=== PATIENT | female | born 1975 | race Caucasian/White ===

== ENCOUNTER 2021-04-18 13:02 | Inpatient (IN) ==
[2021-04-18 14:20] LABS: Calcium 8.6 mg/dL (8.6-10.3)
[2021-04-18 14:21] LABS: Bacteria,Urine Few per hpf (None-Few); Hyaline Casts,Urine Moderate per lpf (None Seen); Mucus,Urine Few per lpf (None-Few); RBC,Urine 0-3 per hpf (0-3); Renal Epithelial Cells,Urine Few per hpf (None-Few); Squamous Epithelial Cell,Urine Few per hpf (None-Few)
[2021-04-18 14:22] LABS: Bilirubin,Urine Negative (Negative); Blood,Urine Moderate (Negative); Clarity,Urine Clear (Clear); Color,Urine Light-Yellow (Yellow); Glucose,Urine (UA) >=1000 mg/dL (Normal); Ketones,Urine Negative (Negative); Leukocyte Esterase,Urine Negative (Negative); Nitrite,Urine Negative (Negative); PH,Urine 6.5 pH Units (5.0-8.0); Protein,Urine >=600 mg/dL (Neg-Trace); Specific Gravity,Urine 1.018 (1.010-1.025); Urobilinogen,Urine Normal (Normal)
[2021-04-18 14:35] LABS: Basophils % 1.2 %; Mean Platelet Volume 11.4 fL (9.4-12.4); Segmented Neutrophils % 72.5 %
[2021-04-18 14:38] LABS: Basophils # 0.1 K/mcL (0.0-0.2); Eosinophils # 0.6 K/mcL (0.0-0.6); Eosinophils % 6.2 %; Hematocrit 37.6 % (35.3-44.9); Immature Granulocytes % 0.5 % (0-4); Immature Platelets 4.5 % (1.1-6.1); Lymphocytes # 1.5 K/mcL (0.6-4.6); Lymphocytes % 14.6 %; Mean Corpuscular HGB Conc 31.9 g/dL (31.6-35.5); Mean Corpuscular Hemoglobin 27.7 pg (28.0-33.3); Mean Corpuscular Volume 86.8 fL (83.0-100.0); Monocytes # 0.5 K/mcL (0.0-1.3); Neutrophils # 7.4 K/mcL (1.6-8.9); Platelet Count 383 K/mcL (140-400); Red Blood Count 4.33 M/mcL (3.82-4.97); White Blood Count 10.2 K/mcL (4.3-11.1)
[2021-04-18 15:04] LABS: Phosphorous 5.1 mg/dL (2.7-4.5)
[2021-04-18] MEDS ORDERED: Naloxone 0.4 MG/ML INJ IVP PRN (16:18)
[2021-04-18] MEDS ORDERED: Melatonin 3 MG TABLET PO PRN (16:18)
[2021-04-18] MEDS ORDERED: Acetaminophen 325 MG TABLET PO PRN (16:18)
[2021-04-18] MEDS ORDERED: Ondansetron 4 MG/2 ML VIAL IVP PRN (16:18)
[2021-04-18 16:23] LABS: Prothrombin Time 11.6 Seconds (9.4-12.1)
[2021-04-18] MEDS ORDERED: *HR* Dextrose 50 % in Water (Vial) 50 ML VIAL IVP PRN (17:37)
[2021-04-18] MEDS ORDERED: Dextrose Gel 15 GM/37.5 ML TUBE PO PRN ×2 (17:37)
[2021-04-18] MEDS ORDERED: D5% in Water 1,000 ML IVC PRN (17:37)
[2021-04-18] MEDS ORDERED: Perflutren Lipid Microsphere 1.3 ML in 0.9 % Sodium Chloride 8.7 ML IVP PRN (17:40)
[2021-04-18] MEDS ORDERED: *HR* Heparin 5,000 UNIT/ML VIAL SQ SCH (18:00)
[2021-04-18 19:04] LABS: Estimated Average Glucose 200 mg/dl; Hemoglobin A1C 8.6 %
[2021-04-18] MEDS ORDERED: Insulin LISPRO 300 UNITS/3 ML VIAL SUBQ ONE (19:37)
[2021-04-18] MEDS: cloNIDine HCL 0.1 MG TABLET PO SCH (19:37)
[2021-04-18] MEDS ORDERED: Insulin DETEMIR 100 UNIT/ML X5UNITS SUBQ SCH (21:00)
[2021-04-18] MEDS ORDERED: Fluticasone Propionate Nasal 50 MCG/SPRAY BOTTLE NS PRN (22:18)
[2021-04-18] MEDS ORDERED: Famotidine 20 MG TABLET PO PRN ×2 (22:18→22:34)
[2021-04-18] MEDS ORDERED: Loratadine 10 MG TABLET PO PRN (22:18)
[2021-04-19 01:02] LABS: Basophils # 0.1 K/mcL (0.0-0.2); Basophils % 0.9 %; Eosinophils # 0.7 K/mcL (0.0-0.6); Eosinophils % 6.7 %; Hematocrit 32.9 % (35.3-44.9); Hemoglobin 10.6 g/dL (11.5-15.4); Immature Granulocytes % 0.4 % (0-4); Lymphocytes # 2.8 K/mcL (0.6-4.6); Lymphocytes % 27.3 %; Mean Corpuscular HGB Conc 32.2 g/dL (31.6-35.5); Mean Corpuscular Volume 86.8 fL (83.0-100.0); Mean Platelet Volume 10.6 fL (9.4-12.4); Monocytes % 9.7 %; Neutrophils # 5.6 K/mcL (1.6-8.9); Platelet Count 341 K/mcL (140-400); Red Blood Count 3.79 M/mcL (3.82-4.97); White Blood Count 10.1 K/mcL (4.3-11.1)
[2021-04-19 01:43] LABS: Phosphorous 4.4 mg/dL (2.7-4.5); Potassium 4.2 mEq/L (3.5-5.1)
[2021-04-19] MEDS: *HR* Heparin 5,000 UNIT/ML VIAL SQ SCH ×2 (05:47→18:52)
[2021-04-19] MEDS: Insulin LISPRO 300 UNITS/3 ML VIAL SUBQ SCH ×6 (08:13→16:49)
[2021-04-19] MEDS: Metoprolol 100 MG TABLET PO SCH ×2 (08:18→21:56)
[2021-04-19] MEDS: Insulin DETEMIR 100 UNIT/ML X5UNITS SUBQ SCH ×2 (08:19→22:22)
[2021-04-19] MEDS: cloNIDine HCL 0.1 MG TABLET PO SCH ×3 (08:19→21:57)
[2021-04-19] MEDS ORDERED: Famotidine 20 MG TABLET PO PRN (10:48)
[2021-04-19] MEDS ORDERED: *HR* Heparin 10,000 UNIT/10 ML VIAL IV PRN (10:56)
[2021-04-19] MEDS ORDERED: 0.9 % Sodium Chloride 250 ML IVC PRN (10:56)
[2021-04-19] MEDS ORDERED: 0.9 % Sodium Chloride 1,000 ML PRIME SCH (11:00)
[2021-04-19 12:11] LABS: Hepatitis B Surface Antibody < 3.10 mIU/mL
[2021-04-19 12:22] LABS: Hepatitis B Surface Antigen Nonreactive (Nonreactive)
[2021-04-19] MEDS ORDERED: 0.9 % Sodium Chloride 500 ML ONE (14:34)
[2021-04-19] MEDS ORDERED: Heparin 1,000 UNITS/500 mL 500 ML ONE (14:36)
[2021-04-19] MEDS ORDERED: Lidocaine/EPI 1:100k 1% 50 ML VIAL ONE (14:36)
[2021-04-19 14:38] LABS: Hepatitis B Core IgM Nonreactive (Nonreactive)
[2021-04-19] MEDS ORDERED: CeFAZolin 2,000MG/50ML DUPLEX 2,000 MG/50 ML BAG IVPB ONE ×2 (14:43→15:00)
[2021-04-19] MEDS ORDERED: *HR* Midazolam HCl 2 MG/2 ML VIAL IVP ONE (14:43)
[2021-04-19] MEDS ORDERED: *HR* FentaNYL (PF) 100 MCG/2 ML VIAL IVP ONE (14:43)
[2021-04-19] MEDS ORDERED: *HR* Heparin 5,000 UNIT/ML VIAL ONE (15:02)
[2021-04-19] MEDS ORDERED: Gabapentin 400 MG CAPSULE PO SCH (21:00)
[2021-04-19] MEDS: *HR* HYDROcodone/Acet 5/325 mg TABLET PO PRN (21:56)
[2021-04-19] MEDS: Metoclopramide 10 MG/2 ML VIAL IVP PRN (21:56)
[2021-04-19] MEDS: Cholecalciferol (D-3) 1,000 UNIT (25MCG) TABLET PO SCH (21:56)
[2021-04-20] MEDS: *HR* Heparin 5,000 UNIT/ML VIAL SQ SCH ×2 (05:53→17:59)
[2021-04-20] MEDS: *HR* HYDROcodone/Acet 5/325 mg TABLET PO PRN (06:35)
[2021-04-20] MEDS ORDERED: 0.9 % Sodium Chloride 250 ML IVC PRN (07:38)
[2021-04-20] MEDS ORDERED: *HR* Heparin 10,000 UNIT/10 ML VIAL IV PRN (07:38)
[2021-04-20 07:47] LABS: Hematocrit 32.7 % (35.3-44.9); Hemoglobin 10.9 g/dL (11.5-15.4); Mean Corpuscular HGB Conc 33.3 g/dL (31.6-35.5); Mean Corpuscular Hemoglobin 28.5 pg (28.0-33.3); Mean Corpuscular Volume 85.4 fL (83.0-100.0); Mean Platelet Volume 10.9 fL (9.4-12.4); Platelet Count 324 K/mcL (140-400); Red Blood Count 3.83 M/mcL (3.82-4.97); White Blood Count 8.3 K/mcL (4.3-11.1)
[2021-04-20 08:08] LABS: Calcium 8.3 mg/dL (8.6-10.3); Magnesium 2.1 mg/dL (1.6-2.6); Phosphorous 4.8 mg/dL (2.7-4.5); Potassium 3.9 mEq/L (3.5-5.1)
[2021-04-20] MEDS: Insulin LISPRO 300 UNITS/3 ML VIAL SUBQ SCH ×6 (08:24→19:04)
[2021-04-20] MEDS: Renal Vitamin 1 CAP CAPSULE PO SCH (08:25)
[2021-04-20] MEDS: cloNIDine HCL 0.1 MG TABLET PO SCH ×4 (08:33→17:59)
[2021-04-20] MEDS: Metoprolol 100 MG TABLET PO SCH ×3 (08:33→21:12)
[2021-04-20] MEDS: Insulin DETEMIR 100 UNIT/ML X5UNITS SUBQ SCH ×2 (10:09→21:11)
[2021-04-20] MEDS ORDERED: Gabapentin 300 MG CAPSULE PO SCH (21:00)
[2021-04-20] MEDS: Cholecalciferol (D-3) 1,000 UNIT (25MCG) TABLET PO SCH (21:12)
[2021-04-21 02:26] VITALS: PULSE 70
[2021-04-21] MEDS: *HR* Heparin 5,000 UNIT/ML VIAL SQ SCH (04:38)
[2021-04-21 05:22] LABS: Hematocrit 31.8 % (35.3-44.9); Hemoglobin 10.5 g/dL (11.5-15.4); Mean Corpuscular Hemoglobin 27.9 pg (28.0-33.3); Mean Corpuscular Volume 84.6 fL (83.0-100.0); Mean Platelet Volume 10.7 fL (9.4-12.4); Platelet Count 306 K/mcL (140-400); Red Blood Count 3.76 M/mcL (3.82-4.97); White Blood Count 7.8 K/mcL (4.3-11.1)
[2021-04-21 05:43] LABS: Calcium 8.3 mg/dL (8.6-10.3); Phosphorous 4.2 mg/dL (2.7-4.5)
[2021-04-21 06:06] LABS: Folate 7.4 ng/mL (3.0-16.0)
[2021-04-21 06:40] VITALS: O2SAT 97
[2021-04-21] MEDS ORDERED: *HR* Heparin 10,000 UNIT/10 ML VIAL IV PRN (07:27)
[2021-04-21] MEDS ORDERED: 0.9 % Sodium Chloride 250 ML IVC PRN (07:27)
[2021-04-21] MEDS: Metoprolol 100 MG TABLET PO SCH (07:37)
[2021-04-21] MEDS: cloNIDine HCL 0.1 MG TABLET PO SCH ×2 (07:37→12:01)
[2021-04-21] MEDS: Metoclopramide 10 MG/2 ML VIAL IVP PRN (07:58)
[2021-04-21] MEDS: Renal Vitamin 1 CAP CAPSULE PO SCH (07:58)
[2021-04-21] MEDS: Insulin DETEMIR 100 UNIT/ML X5UNITS SUBQ SCH (07:58)
[2021-04-21] MEDS: Insulin LISPRO 300 UNITS/3 ML VIAL SUBQ SCH ×4 (07:59→12:01)
[2021-04-21 11:48] VITALS: BP 168/64; TEMP 98
== END 2021-04-21 13:18 | disposition home or self-care (01) | DRG 469 ==
LOC: EMEROOARM 13:02 → 2ANU 13:02
PROVIDERS: ADMIT Internal Medicine; ATTEND Internal Medicine
PROC: IRPERMA (2021-04-19 12:00)

== ENCOUNTER 2022-03-10 19:03 | Inpatient (IN) ==
[2022-03-10] MEDS ORDERED: *HR* FentaNYL (PF) 100 MCG/2 ML VIAL IVP ONE (20:14)
[2022-03-10] MEDS ORDERED: Metoclopramide 10 MG/2 ML VIAL IVP ONE (20:33)
[2022-03-10] MEDS ORDERED: cloNIDine HCL 0.1 MG TABLET PO ONE (20:53)
[2022-03-10] MEDS ORDERED: Metoprolol 100 MG TABLET PO STA (20:53)
[2022-03-10] MEDS ORDERED: Naloxone 0.4 MG/ML INJ IVP PRN (20:55)
[2022-03-10 22:10] LABS: Basophils # 0.1 K/mcL (0.0-0.2); Basophils % 0.9 %; Eosinophils # 0.9 K/mcL (0.0-0.6); Eosinophils % 7.5 %; Hematocrit 32.5 % (35.3-44.9); Hemoglobin 10.7 g/dL (11.5-15.4); Immature Granulocytes % 0.4 % (0-4); Lymphocytes # 1.5 K/mcL (0.6-4.6); Lymphocytes % 12.4 %; Mean Corpuscular HGB Conc 32.9 g/dL (31.6-35.5); Mean Corpuscular Hemoglobin 28.5 pg (28.0-33.3); Mean Corpuscular Volume 86.4 fL (83.0-100.0); Mean Platelet Volume 10.7 fL (9.4-12.4); Monocytes # 0.7 K/mcL (0.0-1.3); Monocytes % 5.7 %; Neutrophils # 8.5 K/mcL (1.6-8.9); Platelet Count 389 K/mcL (140-400); Red Blood Count 3.76 M/mcL (3.82-4.97); Red Cell Distribution Width 13.3 % (11.5-14.5); Segmented Neutrophils % 73.1 %; White Blood Count 11.7 K/mcL (4.3-11.1)
[2022-03-10 22:29] LABS: Calcium 8.1 mg/dL (8.6-10.3); Potassium 3.1 mEq/L (3.5-5.1); Prothrombin Time 11.4 Seconds (9.4-12.1)
[2022-03-10 22:32] LABS: Activated Partial Thrombo Time 30.7 Seconds (26.0-36.0)
[2022-03-10] MEDS ORDERED: *HR* Dextrose 50 % in Water (Syg) 50 ML SYRINGE IVP PRN (23:12)
[2022-03-10] MEDS ORDERED: D5% in Water 1,000 ML IVC PRN (23:12)
[2022-03-10] MEDS ORDERED: Dextrose Gel 15 GM/37.5 ML TUBE PO PRN ×2 (23:12)
[2022-03-11] MEDS: Insulin LISPRO 300 UNITS/3 ML VIAL SUBQ SCH ×5 (00:07→20:07)
[2022-03-11 03:37] LABS: Prothrombin Time 11.4 Seconds (9.4-12.1)
[2022-03-11 03:39] LABS: Activated Partial Thrombo Time 26.1 Seconds (26.0-36.0)
[2022-03-11 03:47] LABS: Calcium 8.1 mg/dL (8.6-10.3); Magnesium 1.8 mg/dL (1.6-2.6); Phosphorous 6.2 mg/dL (2.7-4.5); Potassium 2.9 mEq/L (3.5-5.1)
[2022-03-11 03:50] LABS: Chol/HDL Ratio 3.1 (0-4.9)
[2022-03-11] MEDS ORDERED: Metoclopramide 10 MG/2 ML VIAL IVP ONE ×2 (05:14→11:42)
[2022-03-11] MEDS ORDERED: 0.9 % Sodium Chloride 1,000 ML IVC SCH (06:00)
[2022-03-11] MEDS: Ondansetron 4 MG/2 ML VIAL IVP PRN (10:10)
[2022-03-11] MEDS: *HR* Heparin 5,000 UNIT/ML VIAL SQ SCH ×2 (16:57→22:38)
[2022-03-12] MEDS: *HR* Heparin 5,000 UNIT/ML VIAL SQ SCH ×3 (04:00→20:51)
[2022-03-12] MEDS: Ondansetron 4 MG/2 ML VIAL IVP PRN ×2 (04:09→19:49)
[2022-03-12 07:41] LABS: Basophils # 0.1 K/mcL (0.0-0.2); Basophils % 0.5 %; Eosinophils # 0.3 K/mcL (0.0-0.6); Eosinophils % 2.6 %; Hematocrit 30.5 % (35.3-44.9); Hemoglobin 9.7 g/dL (11.5-15.4); Immature Granulocytes % 0.5 % (0-4); Lymphocytes # 1.9 K/mcL (0.6-4.6); Lymphocytes % 17.1 %; Mean Corpuscular HGB Conc 31.8 g/dL (31.6-35.5); Mean Corpuscular Hemoglobin 28.7 pg (28.0-33.3); Mean Corpuscular Volume 90.2 fL (83.0-100.0); Mean Platelet Volume 10.9 fL (9.4-12.4); Monocytes # 1.2 K/mcL (0.0-1.3); Monocytes % 11.1 %; Neutrophils # 7.4 K/mcL (1.6-8.9); Platelet Count 376 K/mcL (140-400); Red Blood Count 3.38 M/mcL (3.82-4.97); Red Cell Distribution Width 13.9 % (11.5-14.5); Segmented Neutrophils % 68.2 %; White Blood Count 10.9 K/mcL (4.3-11.1)
[2022-03-12] MEDS: Insulin LISPRO 300 UNITS/3 ML VIAL SUBQ SCH ×4 (07:51→21:09)
[2022-03-12 08:01] LABS: Calcium 8.2 mg/dL (8.6-10.3); Potassium 3.1 mEq/L (3.5-5.1)
[2022-03-12] MEDS ORDERED: Furosemide 40 MG TABLET PO PRN (10:50)
[2022-03-12] MEDS ORDERED: Insulin DETEMIR 100 UNIT/ML X5UNITS SUBQ SCH (11:00)
[2022-03-12] MEDS: Budesonide/Formoterol 160/4.5 1 PUFF INH IH SCH ×2 (11:26→20:00)
[2022-03-12] MEDS: Calcium Acetate 667 MG CAPSULE PO SCH ×2 (11:58→17:29)
[2022-03-12] MEDS: Gabapentin 400 MG CAPSULE PO SCH (20:51)
[2022-03-12] MEDS: cloNIDine HCL 0.1 MG TABLET PO SCH (20:51)
[2022-03-12] MEDS: Insulin DETEMIR 100 UNIT/ML X5UNITS SUBQ SCH (21:13)
[2022-03-13 02:38] LABS: Basophils # 0.1 K/mcL (0.0-0.2); Basophils % 0.6 %; Eosinophils # 0.6 K/mcL (0.0-0.6); Eosinophils % 4.7 %; Hematocrit 31.8 % (35.3-44.9); Hemoglobin 10.1 g/dL (11.5-15.4); Immature Granulocytes % 0.5 % (0-4); Lymphocytes # 1.5 K/mcL (0.6-4.6); Lymphocytes % 11.6 %; Mean Corpuscular HGB Conc 31.8 g/dL (31.6-35.5); Mean Corpuscular Hemoglobin 28.1 pg (28.0-33.3); Mean Corpuscular Volume 88.6 fL (83.0-100.0); Mean Platelet Volume 10.7 fL (9.4-12.4); Monocytes # 1.2 K/mcL (0.0-1.3); Monocytes % 8.9 %; Neutrophils # 9.5 K/mcL (1.6-8.9); Platelet Count 390 K/mcL (140-400); Red Blood Count 3.59 M/mcL (3.82-4.97); Red Cell Distribution Width 13.5 % (11.5-14.5); Segmented Neutrophils % 73.7 %; White Blood Count 12.9 K/mcL (4.3-11.1)
[2022-03-13 02:48] LABS: Calcium 8.6 mg/dL (8.6-10.3); Potassium 3.5 mEq/L (3.5-5.1)
[2022-03-13] MEDS: *HR* Heparin 5,000 UNIT/ML VIAL SQ SCH ×3 (05:15→20:45)
[2022-03-13] MEDS: Insulin LISPRO 300 UNITS/3 ML VIAL SUBQ SCH ×5 (07:09→20:46)
[2022-03-13] MEDS: Budesonide/Formoterol 160/4.5 1 PUFF INH IH SCH ×2 (07:39→19:49)
[2022-03-13] MEDS: cloNIDine HCL 0.1 MG TABLET PO SCH ×2 (08:34→20:46)
[2022-03-13] MEDS: Calcium Acetate 667 MG CAPSULE PO SCH (08:34)
[2022-03-13] MEDS ORDERED: Metoclopramide 10 MG/2 ML VIAL IVP PRN ×2 (08:41→09:02)
[2022-03-13] MEDS: Insulin DETEMIR 100 UNIT/ML X5UNITS SUBQ SCH ×2 (09:49→20:45)
[2022-03-13] MEDS: Metoclopramide 10 MG/2 ML VIAL IVP PRN (17:31)
[2022-03-13] MEDS ORDERED: Perit. Dialysis with Dex 4.25% 6,000 ML PERITONEAL SCH (19:00)
[2022-03-13] MEDS ORDERED: Perit. Dialysis with Dex 2.5 % 6,000 ML PERITONEAL SCH (19:00)
[2022-03-13 19:39] LABS: Hepatitis B Surface Antibody > 850.00 mIU/mL
[2022-03-13 19:50] LABS: Hepatitis B Surface Antigen Nonreactive (Nonreactive)
[2022-03-13] MEDS: Gabapentin 400 MG CAPSULE PO SCH (20:46)
[2022-03-14] MEDS: Calcium Acetate 667 MG CAPSULE PO SCH (01:07)
[2022-03-14] MEDS: Ondansetron 4 MG/2 ML VIAL IVP PRN ×2 (04:44→16:40)
[2022-03-14] MEDS: *HR* Heparin 5,000 UNIT/ML VIAL SQ SCH ×3 (04:45→20:07)
[2022-03-14 05:42] LABS: Basophils # 0.1 K/mcL (0.0-0.2); Basophils % 0.5 %; Eosinophils # 0.9 K/mcL (0.0-0.6); Eosinophils % 5.2 %; Hematocrit 32.9 % (35.3-44.9); Immature Granulocytes % 0.7 % (0-4); Lymphocytes # 1.4 K/mcL (0.6-4.6); Lymphocytes % 8.5 %; Mean Corpuscular HGB Conc 30.4 g/dL (31.6-35.5); Mean Corpuscular Volume 92.2 fL (83.0-100.0); Mean Platelet Volume 10.7 fL (9.4-12.4); Monocytes # 1.5 K/mcL (0.0-1.3); Monocytes % 9.1 %; Neutrophils # 12.6 K/mcL (1.6-8.9); Platelet Count 431 K/mcL (140-400); Red Blood Count 3.57 M/mcL (3.82-4.97); Red Cell Distribution Width 13.2 % (11.5-14.5); White Blood Count 16.5 K/mcL (4.3-11.1)
[2022-03-14 07:02] LABS: Calcium 8.7 mg/dL (8.6-10.3); Potassium 4.2 mEq/L (3.5-5.1)
[2022-03-14 07:23] LABS: Estimated Average Glucose 329 mg/dl; Hemoglobin A1C 13.1 %
[2022-03-14] MEDS ORDERED: *HR* FentaNYL (PF) 100 MCG/2 ML VIAL ONE ×2 (07:57→12:08)
[2022-03-14] MEDS ORDERED: *HR* Midazolam HCl 2 MG/2 ML VIAL ONE (07:58)
[2022-03-14] MEDS ORDERED: *HR* Propofol 200 MG/20 ML VIAL IVP ONE ×2 (07:59)
[2022-03-14] MEDS ORDERED: *HR* Succinylcholine 200 MG/10 ML VIAL IVP ONE (08:01)
[2022-03-14] MEDS ORDERED: Lidocaine -MPF 2% 5 ML VIAL ONE ×2 (08:01→13:56)
[2022-03-14] MEDS ORDERED: *HR* Rocuronium Bromide 50 MG/5 ML VIAL ONE (08:01)
[2022-03-14] MEDS ORDERED: Insulin DETEMIR 100 UNIT/ML X5UNITS SUBQ ONE (08:01)
[2022-03-14] MEDS ORDERED: Ondansetron 4 MG/2 ML VIAL ONE (08:01)
[2022-03-14] MEDS ORDERED: Insulin LISPRO 300 UNITS/3 ML VIAL SUBQ ONE (08:01)
[2022-03-14] MEDS: Insulin DETEMIR 100 UNIT/ML X5UNITS SUBQ SCH ×2 (08:02→20:06)
[2022-03-14] MEDS: cloNIDine HCL 0.1 MG TABLET PO SCH ×2 (08:08→20:06)
[2022-03-14] MEDS ORDERED: Lidocaine -MPF 4% 5 ML AMPUL ONE (08:19)
[2022-03-14] MEDS: Insulin LISPRO 300 UNITS/3 ML VIAL SUBQ SCH ×4 (08:33→20:06)
[2022-03-14] MEDS ORDERED: TOTAL JOINT MIXTURE (100ML) INTRAART ONE (09:00)
[2022-03-14] MEDS ORDERED: Heparin 1,000 UNITS/500 mL 500 ML ONE (09:08)
[2022-03-14] MEDS: 0.9 % Sodium Chloride 1,000 ML IVC SCH ×2 (09:14→16:31)
[2022-03-14] MEDS: Budesonide/Formoterol 160/4.5 1 PUFF INH IH SCH ×2 (09:18→19:49)
[2022-03-14] MEDS ORDERED: EPHEDrine 50 MG/ML VIAL ONE (09:19)
[2022-03-14] MEDS ORDERED: *HR* Vasopressin 20 UNIT/ML VIAL ONE (09:22)
[2022-03-14] MEDS ORDERED: *HR* Etomidate 40 MG/20 ML VIAL IVP ONE (09:41)
[2022-03-14] MEDS ORDERED: Povidone-Iodine 45 ML, Sodium Chloride IRRigation 1,000 ML IR ONE (09:45)
[2022-03-14] MEDS ORDERED: CeFAZolin Syr 3,000MG/30 ML 3,000 MG/30 ML SYRINGE IVPB ONE (10:00)
[2022-03-14] MEDS ORDERED: Acetaminophen IV 1,000 MG/100 ML BAG IVPB ONE (10:46)
[2022-03-14] MEDS ORDERED: Gentamicin 430 MG in 0.9 % Sodium Chloride 100 ML IVPB ONE (11:00)
[2022-03-14 11:07] LABS: ABG Base Excess -3 mEq/L (-2 to 3); ABG Chloride 95 mEq/L (98-107); ABG Glucose 403 mg/dL (60-95); ABG HCO3 21 mEq/L (21-27); ABG Ionized Calcium 0.97 mmol/L (1.15-1.35); ABG Oxygen Saturation 100 % (95-98); ABG PCO2 32 mmHg (35-45); ABG PH 7.43 pH Units (7.32-7.45); ABG PO2 158 mmHg (85-104); ABG TCO2 22 mEq/L (20-26)
[2022-03-14] MEDS ORDERED: Insulin Regular, Human 100 UNIT/ML ONE (11:15)
[2022-03-14] MEDS ORDERED: ceFAZolin 3,000 MG in 0.9 % Sodium Chloride 100 ML IVPB SCH (16:00)
[2022-03-14] MEDS ORDERED: ceFAZolin 1,000 MG in 0.9 % Sodium Chloride 10 ML IVP SCH (17:00)
[2022-03-14] MEDS ORDERED: Perit. Dialysis with Dex 1.5 % 12,000 ML PERITONEAL ONE (19:00)
[2022-03-14] MEDS: Gabapentin 400 MG CAPSULE PO SCH (20:07)
[2022-03-15] MEDS: *HR* Heparin 5,000 UNIT/ML VIAL SQ SCH ×3 (05:38→21:21)
[2022-03-15 06:01] LABS: Basophils % 0.2 %; Eosinophils % 0.1 %; Hematocrit 27.6 % (35.3-44.9); Hemoglobin 8.6 g/dL (11.5-15.4); Lymphocytes % 5.7 %; Mean Corpuscular HGB Conc 31.2 g/dL (31.6-35.5); Mean Corpuscular Hemoglobin 28.5 pg (28.0-33.3); Mean Corpuscular Volume 91.4 fL (83.0-100.0); Mean Platelet Volume 10.8 fL (9.4-12.4); Monocytes # 1.6 K/mcL (0.0-1.3); Monocytes % 9.3 %; Neutrophils # 14.1 K/mcL (1.6-8.9); Platelet Count 418 K/mcL (140-400); Red Blood Count 3.02 M/mcL (3.82-4.97); Red Cell Distribution Width 13.5 % (11.5-14.5); Segmented Neutrophils % 83.7 %; White Blood Count 16.8 K/mcL (4.3-11.1)
[2022-03-15 06:19] LABS: Calcium 8.7 mg/dL (8.6-10.3)
[2022-03-15] MEDS: Budesonide/Formoterol 160/4.5 1 PUFF INH IH SCH ×2 (07:11→20:35)
[2022-03-15] MEDS: 0.9 % Sodium Chloride 1,000 ML IVC SCH ×2 (08:20)
[2022-03-15] MEDS: cloNIDine HCL 0.1 MG TABLET PO SCH ×2 (08:23→21:20)
[2022-03-15] MEDS: Insulin LISPRO 300 UNITS/3 ML VIAL SUBQ SCH ×6 (08:24→16:35)
[2022-03-15] MEDS: Insulin DETEMIR 100 UNIT/ML X5UNITS SUBQ SCH ×2 (08:24→21:20)
[2022-03-15] MEDS ORDERED: Heparin 1,000 UNITS/500 mL 500 ML ONE (08:42)
[2022-03-15] MEDS ORDERED: Lidocaine/EPI 1:100k 1% 50 ML VIAL ONE (08:42)
[2022-03-15] MEDS ORDERED: *HR* Midazolam HCl 2 MG/2 ML VIAL ONE (08:45)
[2022-03-15] MEDS ORDERED: *HR* FentaNYL (PF) 100 MCG/2 ML VIAL ONE (08:45)
[2022-03-15] MEDS ORDERED: 0.9 % Sodium Chloride 500 ML ONE (08:45)
[2022-03-15] MEDS ORDERED: *HR* Midazolam HCl 2 MG/2 ML VIAL IVP ONE (08:49)
[2022-03-15] MEDS ORDERED: *HR* FentaNYL (PF) 100 MCG/2 ML VIAL IVP ONE (08:49)
[2022-03-15] MEDS ORDERED: *HR* Heparin 10,000 UNIT/10 ML VIAL IV PRN (08:58)
[2022-03-15] MEDS ORDERED: 0.9 % Sodium Chloride 250 ML IVC PRN (08:58)
[2022-03-15] MEDS ORDERED: 0.9 % Sodium Chloride 2,000 ML PRIME SCH (09:00)
[2022-03-15] MEDS ORDERED: *HR* Heparin 5,000 UNIT/ML VIAL ONE (09:18)
[2022-03-15] MEDS: cefTRIAXone 1,000 MG in 0.9 % Sodium Chloride 10 ML IVP SCH (16:35)
[2022-03-15] MEDS: Gabapentin 400 MG CAPSULE PO SCH (21:20)
[2022-03-15] MEDS: Metoclopramide 10 MG/2 ML VIAL IVP PRN (21:32)
[2022-03-16] MEDS: Insulin LISPRO 300 UNITS/3 ML VIAL SUBQ SCH ×6 (06:10→21:05)
[2022-03-16] MEDS: *HR* Heparin 5,000 UNIT/ML VIAL SQ SCH ×3 (06:10→21:51)
[2022-03-16] MEDS: Budesonide/Formoterol 160/4.5 1 PUFF INH IH SCH ×2 (08:00→20:11)
[2022-03-16 09:18] LABS: Basophils # 0.1 K/mcL (0.0-0.2); Basophils % 0.5 %; Eosinophils % 1.6 %; Hemoglobin 8.9 g/dL (11.5-15.4); Immature Granulocytes % 1.8 % (0-4); Lymphocytes % 12.7 %; Mean Corpuscular HGB Conc 31.8 g/dL (31.6-35.5); Mean Corpuscular Hemoglobin 28.1 pg (28.0-33.3); Mean Corpuscular Volume 88.3 fL (83.0-100.0); Mean Platelet Volume 10.9 fL (9.4-12.4); Monocytes # 1.8 K/mcL (0.0-1.3); Monocytes % 11.6 %; Neutrophils # 11.1 K/mcL (1.6-8.9); Nucleated Red Blood Cells 0.2 /100 WBC (0); Platelet Count 399 K/mcL (140-400); Red Blood Count 3.17 M/mcL (3.82-4.97); Red Cell Distribution Width 13.5 % (11.5-14.5); Segmented Neutrophils % 71.8 %; White Blood Count 15.4 K/mcL (4.3-11.1)
[2022-03-16 09:19] LABS: Eosinophils # 0.3 K/mcL (0.0-0.6)
[2022-03-16] MEDS: Metoclopramide 10 MG/2 ML VIAL IVP PRN (09:26)
[2022-03-16] MEDS: cloNIDine HCL 0.1 MG TABLET PO SCH ×2 (09:27→21:53)
[2022-03-16] MEDS: Insulin DETEMIR 100 UNIT/ML X5UNITS SUBQ SCH ×2 (09:28→21:06)
[2022-03-16 09:35] LABS: Calcium 7.5 mg/dL (8.6-10.3); Potassium 5.1 mEq/L (3.5-5.1)
[2022-03-16] MEDS: cefTRIAXone 1,000 MG in 0.9 % Sodium Chloride 10 ML IVP SCH (16:05)
[2022-03-16] MEDS: Ondansetron 4 MG/2 ML VIAL IVP PRN (20:38)
[2022-03-16] MEDS: Gabapentin 400 MG CAPSULE PO SCH (21:53)
[2022-03-17 06:27] LABS: Basophils # 0.1 K/mcL (0.0-0.2); Basophils % 0.4 %; Eosinophils # 0.5 K/mcL (0.0-0.6); Eosinophils % 4.1 %; Hematocrit 24.1 % (35.3-44.9); Hemoglobin 7.4 g/dL (11.5-15.4); Immature Granulocytes % 1.3 % (0-4); Lymphocytes % 17.7 %; Mean Corpuscular HGB Conc 30.7 g/dL (31.6-35.5); Mean Corpuscular Hemoglobin 28.2 pg (28.0-33.3); Mean Platelet Volume 10.4 fL (9.4-12.4); Monocytes # 1.4 K/mcL (0.0-1.3); Monocytes % 11.7 %; Neutrophils # 7.5 K/mcL (1.6-8.9); Nucleated Red Blood Cells 0.4 /100 WBC (0); Platelet Count 358 K/mcL (140-400); Red Blood Count 2.62 M/mcL (3.82-4.97); Red Cell Distribution Width 13.5 % (11.5-14.5); Segmented Neutrophils % 64.8 %; White Blood Count 11.5 K/mcL (4.3-11.1)
[2022-03-17 06:42] LABS: Calcium 8.3 mg/dL (8.6-10.3); Potassium 4.6 mEq/L (3.5-5.1)
[2022-03-17] MEDS ORDERED: 0.9 % Sodium Chloride 250 ML IVC PRN (07:34)
[2022-03-17] MEDS: Budesonide/Formoterol 160/4.5 1 PUFF INH IH SCH ×2 (07:43→19:44)
[2022-03-17] MEDS: Insulin LISPRO 300 UNITS/3 ML VIAL SUBQ SCH ×4 (08:41→21:38)
[2022-03-17] MEDS: *HR* Heparin 5,000 UNIT/ML VIAL SQ SCH ×3 (08:41→19:51)
[2022-03-17] MEDS: Insulin DETEMIR 100 UNIT/ML X5UNITS SUBQ SCH ×2 (08:41→21:38)
[2022-03-17] MEDS: cloNIDine HCL 0.1 MG TABLET PO SCH ×2 (08:42→19:46)
[2022-03-17] MEDS: Ondansetron 4 MG/2 ML VIAL IVP PRN ×2 (08:46→16:15)
[2022-03-17] MEDS: Metoclopramide 10 MG/2 ML VIAL IVP PRN ×2 (08:46→22:24)
[2022-03-17] MEDS ORDERED: *HR* Heparin 10,000 UNIT/10 ML VIAL IV PRN (11:16)
[2022-03-17] MEDS: cefTRIAXone 1,000 MG in 0.9 % Sodium Chloride 10 ML IVP SCH ×2 (16:15→22:31)
[2022-03-17 18:43] LABS: Amorphous Sediment,Urine Few per hpf (None-Few); Bilirubin,Urine Negative (Negative); Blood,Urine Large (Negative); Budding Yeast,Urine Many per hpf (None Seen); Clarity,Urine Ex.Turbid (Clear); Color,Urine Yellow (Yellow); Glucose,Urine (UA) Normal (Normal); Ketones,Urine Negative (Negative); Leukocyte Esterase,Urine Large (Negative); Mucus,Urine Few per lpf (None-Few); Nitrite,Urine Negative (Negative); Protein,Urine >=600 mg/dL (Neg-Trace); RBC,Urine 30-50 per hpf (0-3); Squamous Epithelial Cell,Urine Moderate per hpf (None-Few); Transitional Epi Cells,Urine Few per hpf (None-Few); Urobilinogen,Urine Normal (Normal); WBC,Urine TNTC per hpf (0-3)
[2022-03-17] MEDS: Gabapentin 400 MG CAPSULE PO SCH (19:46)
[2022-03-18] MEDS: Ondansetron 4 MG/2 ML VIAL IVP PRN (02:58)
[2022-03-18 03:26] LABS: Basophils # 0.1 K/mcL (0.0-0.2); Basophils % 0.8 %; Eosinophils # 0.7 K/mcL (0.0-0.6); Eosinophils % 5.3 %; Hematocrit 26.2 % (35.3-44.9); Hemoglobin 7.8 g/dL (11.5-15.4); Immature Granulocytes % 2.1 % (0-4); Lymphocytes # 1.6 K/mcL (0.6-4.6); Lymphocytes % 12.1 %; Mean Corpuscular HGB Conc 29.8 g/dL (31.6-35.5); Mean Corpuscular Hemoglobin 28.1 pg (28.0-33.3); Mean Corpuscular Volume 94.2 fL (83.0-100.0); Mean Platelet Volume 10.1 fL (9.4-12.4); Monocytes # 1.4 K/mcL (0.0-1.3); Nucleated Red Blood Cells 0.4 /100 WBC (0); Platelet Count 340 K/mcL (140-400); Red Blood Count 2.78 M/mcL (3.82-4.97); Red Cell Distribution Width 13.2 % (11.5-14.5); Segmented Neutrophils % 68.7 %; White Blood Count 13.1 K/mcL (4.3-11.1)
[2022-03-18 03:35] LABS: Calcium 8.3 mg/dL (8.6-10.3); Magnesium 2.1 mg/dL (1.6-2.6); Phosphorous 5.5 mg/dL (2.7-4.5); Potassium 4.6 mEq/L (3.5-5.1)
[2022-03-18] MEDS: *HR* Heparin 5,000 UNIT/ML VIAL SQ SCH ×3 (05:11→20:22)
[2022-03-18] MEDS: Budesonide/Formoterol 160/4.5 1 PUFF INH IH SCH ×2 (07:39→20:22)
[2022-03-18] MEDS: cloNIDine HCL 0.1 MG TABLET PO SCH ×2 (07:49→20:21)
[2022-03-18] MEDS: Insulin LISPRO 300 UNITS/3 ML VIAL SUBQ SCH ×4 (07:49→20:25)
[2022-03-18] MEDS: Insulin DETEMIR 100 UNIT/ML X5UNITS SUBQ SCH ×2 (07:50→20:26)
[2022-03-18] MEDS: Ergocalciferol (VIT D2) 50,000 UNIT (1.25MG) CAP PO SCH (07:55)
[2022-03-18] MEDS: cefTRIAXone 1,000 MG in 0.9 % Sodium Chloride 10 ML IVP SCH (16:46)
[2022-03-18] MEDS: Gabapentin 400 MG CAPSULE PO SCH (20:21)
[2022-03-18] MEDS: Metoclopramide 10 MG/2 ML VIAL IVP PRN (20:32)
[2022-03-19 03:10] LABS: Basophils # 0.1 K/mcL (0.0-0.2); Basophils % 0.8 %; Eosinophils # 0.8 K/mcL (0.0-0.6); Eosinophils % 6.2 %; Hematocrit 24.7 % (35.3-44.9); Hemoglobin 7.3 g/dL (11.5-15.4); Immature Granulocytes % 2.4 % (0-4); Lymphocytes # 1.8 K/mcL (0.6-4.6); Lymphocytes % 14.7 %; Mean Corpuscular HGB Conc 29.6 g/dL (31.6-35.5); Mean Corpuscular Hemoglobin 27.8 pg (28.0-33.3); Mean Corpuscular Volume 93.9 fL (83.0-100.0); Mean Platelet Volume 10.4 fL (9.4-12.4); Monocytes # 1.2 K/mcL (0.0-1.3); Monocytes % 9.8 %; Neutrophils # 8.1 K/mcL (1.6-8.9); Nucleated Red Blood Cells 0.3 /100 WBC (0); Platelet Count 363 K/mcL (140-400); Red Blood Count 2.63 M/mcL (3.82-4.97); Red Cell Distribution Width 13.1 % (11.5-14.5); Segmented Neutrophils % 66.1 %; White Blood Count 12.2 K/mcL (4.3-11.1)
[2022-03-19] MEDS: Ondansetron 4 MG/2 ML VIAL IVP PRN (03:23)
[2022-03-19 03:29] LABS: Calcium 8.6 mg/dL (8.6-10.3); Magnesium 2.4 mg/dL (1.6-2.6); Phosphorous 7.7 mg/dL (2.7-4.5); Potassium 5.4 mEq/L (3.5-5.1)
[2022-03-19] MEDS: *HR* Heparin 5,000 UNIT/ML VIAL SQ SCH ×3 (04:59→20:37)
[2022-03-19] MEDS: Budesonide/Formoterol 160/4.5 1 PUFF INH IH SCH ×2 (07:30→19:48)
[2022-03-19] MEDS: Insulin LISPRO 300 UNITS/3 ML VIAL SUBQ SCH ×4 (08:18→20:36)
[2022-03-19] MEDS: cloNIDine HCL 0.1 MG TABLET PO SCH ×2 (08:23→20:36)
[2022-03-19] MEDS: cefTRIAXone 1,000 MG in 0.9 % Sodium Chloride 10 ML IVP SCH (17:36)
[2022-03-19] MEDS: Gabapentin 400 MG CAPSULE PO SCH (20:36)
[2022-03-19] MEDS: Insulin DETEMIR 100 UNIT/ML X5UNITS SUBQ SCH (20:37)
[2022-03-20 04:09] LABS: Basophils # 0.1 K/mcL (0.0-0.2); Basophils % 0.8 %; Eosinophils # 0.8 K/mcL (0.0-0.6); Eosinophils % 7.1 %; Hematocrit 24.9 % (35.3-44.9); Hemoglobin 7.5 g/dL (11.5-15.4); Lymphocytes # 1.9 K/mcL (0.6-4.6); Lymphocytes % 16.1 %; Mean Corpuscular HGB Conc 30.1 g/dL (31.6-35.5); Mean Corpuscular Hemoglobin 28.3 pg (28.0-33.3); Mean Platelet Volume 10.2 fL (9.4-12.4); Monocytes # 1.2 K/mcL (0.0-1.3); Monocytes % 9.8 %; Neutrophils # 7.4 K/mcL (1.6-8.9); Nucleated Red Blood Cells 0.2 /100 WBC (0); Platelet Count 348 K/mcL (140-400); Red Blood Count 2.65 M/mcL (3.82-4.97); Segmented Neutrophils % 62.2 %; White Blood Count 11.9 K/mcL (4.3-11.1)
[2022-03-20 04:25] LABS: Calcium 8.7 mg/dL (8.6-10.3); Potassium 5.8 mEq/L (3.5-5.1)
[2022-03-20] MEDS: *HR* Heparin 5,000 UNIT/ML VIAL SQ SCH ×3 (04:50→21:58)
[2022-03-20] MEDS ORDERED: 0.9 % Sodium Chloride 250 ML IVC PRN (07:16)
[2022-03-20] MEDS: Budesonide/Formoterol 160/4.5 1 PUFF INH IH SCH ×2 (07:43→19:49)
[2022-03-20] MEDS: cloNIDine HCL 0.1 MG TABLET PO SCH ×2 (08:23→21:57)
[2022-03-20] MEDS: Ondansetron 4 MG/2 ML VIAL IVP PRN ×2 (08:29→22:58)
[2022-03-20] MEDS: Insulin LISPRO 300 UNITS/3 ML VIAL SUBQ SCH ×4 (08:29→21:58)
[2022-03-20] MEDS: SODIUM ZIRCONIUM CYCLOSILICATE 5 GM POWD.PACK PO SCH (14:38)
[2022-03-20] MEDS ORDERED: Insulin DETEMIR 100 UNIT/ML X5UNITS SUBQ SCH (21:00)
[2022-03-20] MEDS: Gabapentin 400 MG CAPSULE PO SCH (21:57)
[2022-03-21] MEDS: *HR* Heparin 5,000 UNIT/ML VIAL SQ SCH ×3 (04:21→21:51)
[2022-03-21 05:43] LABS: Basophils # 0.1 K/mcL (0.0-0.2); Eosinophils # 0.6 K/mcL (0.0-0.6); Hematocrit 26.5 % (35.3-44.9); Immature Granulocytes % 5.8 % (0-4); Lymphocytes # 1.2 K/mcL (0.6-4.6); Lymphocytes % 12.6 %; Mean Corpuscular HGB Conc 30.2 g/dL (31.6-35.5); Mean Corpuscular Hemoglobin 28.4 pg (28.0-33.3); Mean Platelet Volume 10.1 fL (9.4-12.4); Monocytes % 8.7 %; Neutrophils # 6.4 K/mcL (1.6-8.9); Nucleated Red Blood Cells 0.5 /100 WBC (0); Platelet Count 380 K/mcL (140-400); Red Blood Count 2.82 M/mcL (3.82-4.97); Segmented Neutrophils % 65.9 %; White Blood Count 9.7 K/mcL (4.3-11.1)
[2022-03-21 06:15] LABS: Alanine Aminotransferase < 3 Units/L (7-52); Albumin 2.7 g/dL (3.5-5.7); Albumin/Globulin Ratio 0.9 (1.1-2.2); Alkaline Phosphatase 96 Units/L (34-104); Aspartate Amino Transferase 16 Units/L (13-39); BUN/Creatinine Ratio 7 (6-26); Bilirubin,Total 0.3 mg/dL (0.3-1.0); Blood Urea Nitrogen 38 mg/dL (6-20); Calcium 8.2 mg/dL (8.6-10.3); Carbon Dioxide 25 mEq/L (23-29); Chloride 95 mEq/L (98-107); Glucose 117 mg/dL (70-105); Osmolality,Calculated 286 (280-300); Potassium 4.9 mEq/L (3.5-5.1); Sodium 133 mEq/L (136-145); Total Protein 5.7 g/dL (6.4-8.9); eGFR For African Americans 10 (> 60); eGFR For Non-African Americans 9 (> 60)
[2022-03-21 06:20] LABS: Monocytes # 0.8 K/mcL (0.0-1.3)
[2022-03-21 06:21] LABS: Platelet Estimate Normal (Normal); Polychromasia 1+ (Not Present)
[2022-03-21] MEDS: Budesonide/Formoterol 160/4.5 1 PUFF INH IH SCH ×2 (07:22→19:51)
[2022-03-21] MEDS: Insulin LISPRO 300 UNITS/3 ML VIAL SUBQ SCH ×4 (07:39→21:30)
[2022-03-21] MEDS: SODIUM ZIRCONIUM CYCLOSILICATE 5 GM POWD.PACK PO SCH (08:48)
[2022-03-21] MEDS: cloNIDine HCL 0.1 MG TABLET PO SCH ×2 (08:48→21:50)
[2022-03-21] MEDS: Ondansetron 4 MG/2 ML VIAL IVP PRN (11:56)
[2022-03-21] MEDS ORDERED: *HR* Promethazine 25 MG/ML VIAL IM ONE (17:10)
[2022-03-21] MEDS: Sennosides 8.6 MG TABLET PO PRN (21:50)
[2022-03-21] MEDS: Gabapentin 400 MG CAPSULE PO SCH (21:50)
[2022-03-22 04:09] LABS: Basophils # 0.1 K/mcL (0.0-0.2); Basophils % 0.7 %; Eosinophils # 0.7 K/mcL (0.0-0.6); Eosinophils % 5.9 %; Hematocrit 25.1 % (35.3-44.9); Hemoglobin 7.6 g/dL (11.5-15.4); Immature Granulocytes % 4.6 % (0-4); Lymphocytes # 1.5 K/mcL (0.6-4.6); Lymphocytes % 13.6 %; Mean Corpuscular HGB Conc 30.3 g/dL (31.6-35.5); Mean Corpuscular Hemoglobin 28.4 pg (28.0-33.3); Mean Corpuscular Volume 93.7 fL (83.0-100.0); Mean Platelet Volume 10.1 fL (9.4-12.4); Monocytes # 1.1 K/mcL (0.0-1.3); Monocytes % 9.8 %; Neutrophils # 7.2 K/mcL (1.6-8.9); Nucleated Red Blood Cells 0.5 /100 WBC (0); Platelet Count 405 K/mcL (140-400); Red Blood Count 2.68 M/mcL (3.82-4.97); Red Cell Distribution Width 13.1 % (11.5-14.5); Segmented Neutrophils % 65.4 %
[2022-03-22 04:27] LABS: Calcium 8.1 mg/dL (8.6-10.3); Phosphorous 6.3 mg/dL (2.7-4.5); Potassium 4.7 mEq/L (3.5-5.1)
[2022-03-22] MEDS: *HR* Heparin 5,000 UNIT/ML VIAL SQ SCH ×3 (06:25→19:54)
[2022-03-22] MEDS ORDERED: 0.9 % Sodium Chloride 250 ML IVC PRN (07:28)
[2022-03-22] MEDS ORDERED: 0.9 % Sodium Chloride 2,000 ML PRIME SCH (07:30)
[2022-03-22] MEDS: Budesonide/Formoterol 160/4.5 1 PUFF INH IH SCH ×2 (07:34→20:00)
[2022-03-22] MEDS: Insulin LISPRO 300 UNITS/3 ML VIAL SUBQ SCH ×4 (08:42→19:47)
[2022-03-22] MEDS: SODIUM ZIRCONIUM CYCLOSILICATE 5 GM POWD.PACK PO SCH (08:42)
[2022-03-22] MEDS: cloNIDine HCL 0.1 MG TABLET PO SCH ×2 (11:40→19:53)
[2022-03-22] MEDS ORDERED: Milk and Molasses Enema 200 ML RC ONE (13:45)
[2022-03-22] MEDS: Ondansetron 4 MG/2 ML VIAL IVP PRN (17:00)
[2022-03-22] MEDS: Gabapentin 400 MG CAPSULE PO SCH (19:53)
[2022-03-23] MEDS ORDERED: Lactulose Oral Soln 20 GM/30 ML UDC PO ONE (00:32)
[2022-03-23] MEDS ORDERED: MOM Conc 10 ML UD.LIQ PO ONE (00:32)
[2022-03-23] MEDS: Ondansetron 4 MG/2 ML VIAL IVP PRN ×2 (04:23→17:22)
[2022-03-23 05:04] LABS: Calcium 8.5 mg/dL (8.6-10.3); Phosphorous 6.8 mg/dL (2.7-4.5); Potassium 5.1 mEq/L (3.5-5.1)
[2022-03-23] MEDS: *HR* Heparin 5,000 UNIT/ML VIAL SQ SCH ×2 (06:48→20:13)
[2022-03-23] MEDS: Budesonide/Formoterol 160/4.5 1 PUFF INH IH SCH ×2 (07:28→20:35)
[2022-03-23] MEDS: cloNIDine HCL 0.1 MG TABLET PO SCH ×2 (09:13→20:13)
[2022-03-23] MEDS: Insulin LISPRO 300 UNITS/3 ML VIAL SUBQ SCH ×4 (09:16→20:14)
[2022-03-23] MEDS ORDERED: Famotidine 20 MG TABLET PO PRN (09:46)
[2022-03-23] MEDS ORDERED: Sennosides 8.6 MG TABLET PO ONE (09:48)
[2022-03-23] MEDS: Sennosides 8.6 MG TABLET PO PRN (11:29)
[2022-03-23] MEDS: Famotidine 20 MG TABLET PO PRN (11:30)
[2022-03-23] MEDS: *HR* OxyCODONE/APAP 5/325 TABLET PO PRN (13:08)
[2022-03-23] MEDS: Gabapentin 400 MG CAPSULE PO SCH (20:13)
[2022-03-24 06:01] LABS: Basophils # 0.1 K/mcL (0.0-0.2); Basophils % 0.5 %; Eosinophils # 0.6 K/mcL (0.0-0.6); Eosinophils % 5.9 %; Hematocrit 23.3 % (35.3-44.9); Immature Granulocytes % 2.8 % (0-4); Lymphocytes # 1.1 K/mcL (0.6-4.6); Lymphocytes % 11.7 %; Mean Corpuscular Hemoglobin 28.1 pg (28.0-33.3); Mean Corpuscular Volume 93.6 fL (83.0-100.0); Mean Platelet Volume 9.8 fL (9.4-12.4); Monocytes # 1.1 K/mcL (0.0-1.3); Monocytes % 11.4 %; Neutrophils # 6.3 K/mcL (1.6-8.9); Nucleated Red Blood Cells 0.5 /100 WBC (0); Platelet Count 346 K/mcL (140-400); Red Blood Count 2.49 M/mcL (3.82-4.97); Red Cell Distribution Width 13.4 % (11.5-14.5); Segmented Neutrophils % 67.7 %; White Blood Count 9.3 K/mcL (4.3-11.1)
[2022-03-24 06:16] LABS: Calcium 8.2 mg/dL (8.6-10.3); Phosphorous 7.5 mg/dL (2.7-4.5); Potassium 5.4 mEq/L (3.5-5.1)
[2022-03-24 06:17] LABS: % Iron Saturation 12 % (15-50); Iron 29 mcg/dL (50-170); Transferrin 173 mg/dL (203-362)
[2022-03-24 06:33] LABS: Ferritin 1098 ng/mL (10-120)
[2022-03-24] MEDS: *HR* Heparin 5,000 UNIT/ML VIAL SQ SCH ×2 (07:46→22:21)
[2022-03-24] MEDS ORDERED: 0.9 % Sodium Chloride 250 ML IVC PRN (07:46)
[2022-03-24] MEDS: Insulin LISPRO 300 UNITS/3 ML VIAL SUBQ SCH ×4 (07:46→22:52)
[2022-03-24] MEDS ORDERED: *HR* Heparin 10,000 UNIT/10 ML VIAL IV PRN (07:46)
[2022-03-24] MEDS: Budesonide/Formoterol 160/4.5 1 PUFF INH IH SCH ×3 (07:48→20:22)
[2022-03-24] MEDS ORDERED: Iron Sucrose Complex 200 MG in 0.9 % Sodium Chloride 100 ML IVPB SCH (09:00)
[2022-03-24] MEDS: cloNIDine HCL 0.1 MG TABLET PO SCH ×2 (09:30→22:17)
[2022-03-24] MEDS: Ondansetron 4 MG/2 ML VIAL IVP PRN (20:19)
[2022-03-24] MEDS ORDERED: Metoclopramide 10 MG/2 ML VIAL IVP ONE (20:56)
[2022-03-24] MEDS: Gabapentin 400 MG CAPSULE PO SCH (22:17)
[2022-03-24] MEDS: *HR* OxyCODONE/APAP 5/325 TABLET PO PRN (22:17)
[2022-03-24] MEDS: Iron Sucrose Complex 200 MG in 0.9 % Sodium Chloride 100 ML IVPB SCH (23:02)
[2022-03-25] MEDS: *HR* Heparin 5,000 UNIT/ML VIAL SQ SCH ×2 (06:46→19:48)
[2022-03-25] MEDS: *HR* OxyCODONE/APAP 5/325 TABLET PO PRN (06:47)
[2022-03-25] MEDS: Insulin LISPRO 300 UNITS/3 ML VIAL SUBQ SCH ×4 (06:47→22:14)
[2022-03-25] MEDS: Budesonide/Formoterol 160/4.5 1 PUFF INH IH SCH ×2 (09:22→20:31)
[2022-03-25] MEDS: Ondansetron 4 MG/2 ML VIAL IVP PRN (10:01)
[2022-03-25] MEDS: Famotidine 20 MG TABLET PO PRN (10:03)
[2022-03-25] MEDS: cloNIDine HCL 0.1 MG TABLET PO SCH ×2 (10:03→19:49)
[2022-03-25 11:57] LABS: Basophils # 0.1 K/mcL (0.0-0.2); Basophils % 0.6 %; Eosinophils # 0.4 K/mcL (0.0-0.6); Eosinophils % 4.7 %; Hematocrit 25.2 % (35.3-44.9); Hemoglobin 7.6 g/dL (11.5-15.4); Immature Granulocytes % 2.3 % (0-4); Lymphocytes # 1.1 K/mcL (0.6-4.6); Lymphocytes % 13.2 %; Mean Corpuscular HGB Conc 30.2 g/dL (31.6-35.5); Mean Corpuscular Hemoglobin 28.7 pg (28.0-33.3); Mean Corpuscular Volume 95.1 fL (83.0-100.0); Monocytes # 1.1 K/mcL (0.0-1.3); Neutrophils # 5.5 K/mcL (1.6-8.9); Platelet Count 336 K/mcL (140-400); Red Blood Count 2.65 M/mcL (3.82-4.97); Red Cell Distribution Width 13.8 % (11.5-14.5); Segmented Neutrophils % 66.2 %; White Blood Count 8.3 K/mcL (4.3-11.1)
[2022-03-25 12:17] LABS: Calcium 8.1 mg/dL (8.6-10.3); Phosphorous 4.4 mg/dL (2.7-4.5); Potassium 4.2 mEq/L (3.5-5.1)
[2022-03-25] MEDS: Ergocalciferol (VIT D2) 50,000 UNIT (1.25MG) CAP PO SCH (12:27)
[2022-03-25] MEDS: Gabapentin 400 MG CAPSULE PO SCH (19:49)
[2022-03-25] MEDS: Sennosides 8.6 MG TABLET PO PRN (19:49)
[2022-03-25] MEDS: Iron Sucrose Complex 200 MG in 0.9 % Sodium Chloride 100 ML IVPB SCH (22:14)
[2022-03-26] MEDS: *HR* OxyCODONE/APAP 5/325 TABLET PO PRN ×2 (00:23→21:05)
[2022-03-26] MEDS: Budesonide/Formoterol 160/4.5 1 PUFF INH IH SCH ×2 (07:38→20:32)
[2022-03-26] MEDS: Insulin LISPRO 300 UNITS/3 ML VIAL SUBQ SCH ×4 (08:06→21:57)
[2022-03-26] MEDS: *HR* Heparin 5,000 UNIT/ML VIAL SQ SCH (08:06)
[2022-03-26] MEDS: cloNIDine HCL 0.1 MG TABLET PO SCH ×2 (08:07→21:04)
[2022-03-26 09:28] LABS: Basophils # 0.1 K/mcL (0.0-0.2); Basophils % 0.6 %; Eosinophils # 0.6 K/mcL (0.0-0.6); Eosinophils % 6.6 %; Hematocrit 22.7 % (35.3-44.9); Hemoglobin 6.9 g/dL (11.5-15.4); Immature Granulocytes % 2.1 % (0-4); Lymphocytes # 1.2 K/mcL (0.6-4.6); Mean Corpuscular HGB Conc 30.4 g/dL (31.6-35.5); Mean Corpuscular Hemoglobin 28.6 pg (28.0-33.3); Mean Corpuscular Volume 94.2 fL (83.0-100.0); Mean Platelet Volume 9.9 fL (9.4-12.4); Monocytes # 0.9 K/mcL (0.0-1.3); Monocytes % 10.1 %; Neutrophils # 5.9 K/mcL (1.6-8.9); Platelet Count 330 K/mcL (140-400); Red Blood Count 2.41 M/mcL (3.82-4.97); Red Cell Distribution Width 13.9 % (11.5-14.5); Segmented Neutrophils % 66.6 %; White Blood Count 8.9 K/mcL (4.3-11.1)
[2022-03-26 09:50] LABS: Calcium 7.7 mg/dL (8.6-10.3); Phosphorous 4.3 mg/dL (2.7-4.5); Potassium 4.1 mEq/L (3.5-5.1)
[2022-03-26] MEDS: Bisacodyl 10 MG RECTAL SUPPOSITORY RC SCH ×2 (10:45→20:55)
[2022-03-26] MEDS ORDERED: 0.9 % Sodium Chloride 250 ML IVC SCH (11:00)
[2022-03-26] MEDS: Sennosides 8.6 MG TABLET PO SCH (12:26)
[2022-03-26] MEDS ORDERED: 0.9 % Sodium Chloride 250 ML ONE (14:34)
[2022-03-26] MEDS ORDERED: *HR* Metformin 500 MG TABLET PO SCH (17:00)
[2022-03-26 20:36] LABS: Hematocrit 26.8 % (35.3-44.9)
[2022-03-26] MEDS ORDERED: 0.9 % Sodium Chloride 250 ML IVC PRN (20:46)
[2022-03-26] MEDS: Gabapentin 400 MG CAPSULE PO SCH (21:04)
[2022-03-26] MEDS: Melatonin 3 MG TABLET PO PRN (21:05)
[2022-03-26 21:16] LABS: Hemoglobin 8.5 g/dL (11.5-15.4)
[2022-03-27] MEDS ORDERED: *HR* Heparin 10,000 UNIT/10 ML VIAL IV PRN (00:01)
[2022-03-27] MEDS: Budesonide/Formoterol 160/4.5 1 PUFF INH IH SCH ×2 (08:04→20:34)
[2022-03-27] MEDS: Aspirin Enteric Coated 325 MG Tablet PO SCH (08:33)
[2022-03-27] MEDS: Sennosides 8.6 MG TABLET PO SCH (08:33)
[2022-03-27] MEDS: cloNIDine HCL 0.1 MG TABLET PO SCH ×2 (08:35→19:51)
[2022-03-27] MEDS: Insulin LISPRO 300 UNITS/3 ML VIAL SUBQ SCH ×4 (08:35→19:55)
[2022-03-27 12:26] LABS: Basophils # 0.1 K/mcL (0.0-0.2); Basophils % 0.7 %; Eosinophils # 0.5 K/mcL (0.0-0.6); Hematocrit 26.4 % (35.3-44.9); Hemoglobin 8.5 g/dL (11.5-15.4); Immature Granulocytes % 1.9 % (0-4); Lymphocytes # 0.8 K/mcL (0.6-4.6); Lymphocytes % 11.5 %; Mean Corpuscular HGB Conc 32.2 g/dL (31.6-35.5); Mean Corpuscular Volume 90.1 fL (83.0-100.0); Mean Platelet Volume 9.7 fL (9.4-12.4); Monocytes # 0.5 K/mcL (0.0-1.3); Monocytes % 7.2 %; Platelet Count 331 K/mcL (140-400); Red Blood Count 2.93 M/mcL (3.82-4.97); Red Cell Distribution Width 14.3 % (11.5-14.5); Segmented Neutrophils % 71.7 %
[2022-03-27 12:59] LABS: Calcium 7.8 mg/dL (8.6-10.3); Phosphorous 3.1 mg/dL (2.7-4.5); Potassium 4.1 mEq/L (3.5-5.1)
[2022-03-27] MEDS ORDERED: Bisacodyl 10 MG RECTAL SUPPOSITORY RC ONE (14:33)
[2022-03-27] MEDS: *HR* OxyCODONE/APAP 5/325 TABLET PO PRN (19:50)
[2022-03-27] MEDS: Melatonin 3 MG TABLET PO PRN (19:51)
[2022-03-27] MEDS: Gabapentin 400 MG CAPSULE PO SCH (19:51)
[2022-03-28] MEDS: Insulin LISPRO 300 UNITS/3 ML VIAL SUBQ SCH ×4 (07:30→22:30)
[2022-03-28] MEDS: Budesonide/Formoterol 160/4.5 1 PUFF INH IH SCH ×2 (08:01→19:44)
[2022-03-28 08:30] LABS: Basophils # 0.1 K/mcL (0.0-0.2); Eosinophils # 0.7 K/mcL (0.0-0.6); Eosinophils % 8.9 %; Hematocrit 27.6 % (35.3-44.9); Hemoglobin 8.8 g/dL (11.5-15.4); Immature Granulocytes % 1.9 % (0-4); Lymphocytes # 1.4 K/mcL (0.6-4.6); Lymphocytes % 18.6 %; Mean Corpuscular HGB Conc 31.9 g/dL (31.6-35.5); Mean Corpuscular Hemoglobin 28.9 pg (28.0-33.3); Mean Corpuscular Volume 90.8 fL (83.0-100.0); Mean Platelet Volume 9.6 fL (9.4-12.4); Monocytes # 0.7 K/mcL (0.0-1.3); Monocytes % 10.1 %; Neutrophils # 4.4 K/mcL (1.6-8.9); Nucleated Red Blood Cells 0.3 /100 WBC (0); Platelet Count 401 K/mcL (140-400); Red Blood Count 3.04 M/mcL (3.82-4.97); Red Cell Distribution Width 14.1 % (11.5-14.5); Segmented Neutrophils % 59.5 %; White Blood Count 7.3 K/mcL (4.3-11.1)
[2022-03-28] MEDS ORDERED: Heparin 1,000 UNITS/500 mL 500 ML ONE (08:30)
[2022-03-28] MEDS ORDERED: *HR* Heparin 10,000 UNIT/10 ML VIAL IV PRN (08:35)
[2022-03-28] MEDS ORDERED: 0.9 % Sodium Chloride 250 ML IVC PRN (08:35)
[2022-03-28 08:48] LABS: Calcium 8.3 mg/dL (8.6-10.3); Phosphorous 3.9 mg/dL (2.7-4.5)
[2022-03-28] MEDS ORDERED: *HR* Heparin 5,000 UNIT/ML VIAL ONE (08:49)
[2022-03-28] MEDS: Sennosides 8.6 MG TABLET PO SCH (10:30)
[2022-03-28] MEDS: cloNIDine HCL 0.1 MG TABLET PO SCH ×2 (10:31→22:42)
[2022-03-28] MEDS: Aspirin Enteric Coated 325 MG Tablet PO SCH (10:32)
[2022-03-28] MEDS: carvediloL 6.25 MG TABLET PO SCH (17:16)
[2022-03-28] MEDS: Ondansetron 4 MG/2 ML VIAL IVP PRN (20:06)
[2022-03-28] MEDS: Gabapentin 400 MG CAPSULE PO SCH (22:43)
[2022-03-29] MEDS: *HR* OxyCODONE/APAP 5/325 TABLET PO PRN ×3 (01:32→21:34)
[2022-03-29] MEDS: Budesonide/Formoterol 160/4.5 1 PUFF INH IH SCH (07:39)
[2022-03-29] MEDS ORDERED: *HR* Heparin 10,000 UNIT/10 ML VIAL IV PRN (07:49)
[2022-03-29] MEDS ORDERED: 0.9 % Sodium Chloride 250 ML IVC PRN (07:49)
[2022-03-29] MEDS: Aspirin Enteric Coated 325 MG Tablet PO SCH (08:17)
[2022-03-29] MEDS: Sennosides 8.6 MG TABLET PO SCH (08:17)
[2022-03-29] MEDS: cloNIDine HCL 0.1 MG TABLET PO SCH ×2 (08:18→20:15)
[2022-03-29] MEDS: carvediloL 6.25 MG TABLET PO SCH ×2 (08:18→16:52)
[2022-03-29] MEDS: Insulin LISPRO 300 UNITS/3 ML VIAL SUBQ SCH ×4 (08:19→21:18)
[2022-03-29] MEDS ORDERED: polyethylene glycoL 3350 17 GM POWD.PACK PO PRN (13:41)
[2022-03-29 16:38] LABS: Hematocrit 29.1 % (35.3-44.9); Mean Corpuscular HGB Conc 30.9 g/dL (31.6-35.5); Mean Corpuscular Hemoglobin 28.4 pg (28.0-33.3); Mean Corpuscular Volume 91.8 fL (83.0-100.0); Mean Platelet Volume 9.4 fL (9.4-12.4); Platelet Count 408 K/mcL (140-400); Red Blood Count 3.17 M/mcL (3.82-4.97); Red Cell Distribution Width 13.8 % (11.5-14.5); White Blood Count 7.8 K/mcL (4.3-11.1)
[2022-03-29 17:15] LABS: Calcium 8.2 mg/dL (8.6-10.3)
[2022-03-29] MEDS: Gabapentin 400 MG CAPSULE PO SCH (20:15)
[2022-03-30] MEDS: *HR* OxyCODONE/APAP 5/325 TABLET PO PRN ×2 (05:38→22:29)
[2022-03-30] MEDS: Ondansetron 4 MG/2 ML VIAL IVP PRN (06:03)
[2022-03-30] MEDS: hydrALAZINE 25 MG TABLET PO SCH ×2 (08:13→16:48)
[2022-03-30] MEDS: Sennosides 8.6 MG TABLET PO SCH (08:13)
[2022-03-30] MEDS: Aspirin Enteric Coated 325 MG Tablet PO SCH (08:13)
[2022-03-30] MEDS: carvediloL 6.25 MG TABLET PO SCH ×2 (08:13→16:48)
[2022-03-30] MEDS: cloNIDine HCL 0.1 MG TABLET PO SCH ×2 (08:13→21:12)
[2022-03-30] MEDS: Insulin LISPRO 300 UNITS/3 ML VIAL SUBQ SCH ×4 (08:19→21:01)
[2022-03-30 11:54] LABS: Basophils # 0.1 K/mcL (0.0-0.2); Eosinophils # 0.6 K/mcL (0.0-0.6); Eosinophils % 8.7 %; Hematocrit 28.2 % (35.3-44.9); Hemoglobin 8.7 g/dL (11.5-15.4); Immature Granulocytes % 0.9 % (0-4); Lymphocytes # 1.2 K/mcL (0.6-4.6); Lymphocytes % 17.6 %; Mean Corpuscular HGB Conc 30.9 g/dL (31.6-35.5); Mean Corpuscular Hemoglobin 28.5 pg (28.0-33.3); Mean Corpuscular Volume 92.5 fL (83.0-100.0); Mean Platelet Volume 9.8 fL (9.4-12.4); Monocytes # 0.6 K/mcL (0.0-1.3); Monocytes % 8.4 %; Neutrophils # 4.5 K/mcL (1.6-8.9); Platelet Count 412 K/mcL (140-400); Red Blood Count 3.05 M/mcL (3.82-4.97); Segmented Neutrophils % 63.4 %; White Blood Count 7.1 K/mcL (4.3-11.1)
[2022-03-30] MEDS: Gabapentin 400 MG CAPSULE PO SCH (21:12)
[2022-03-31] MEDS: hydrALAZINE 25 MG TABLET PO SCH ×3 (01:03→16:40)
[2022-03-31] MEDS ORDERED: *HR* Heparin 10,000 UNIT/10 ML VIAL IV PRN (08:01)
[2022-03-31] MEDS ORDERED: 0.9 % Sodium Chloride 250 ML IVC PRN (08:01)
[2022-03-31] MEDS: Sennosides 8.6 MG TABLET PO SCH (08:15)
[2022-03-31] MEDS: Insulin LISPRO 300 UNITS/3 ML VIAL SUBQ SCH ×4 (08:15→21:01)
[2022-03-31] MEDS: Aspirin Enteric Coated 325 MG Tablet PO SCH (08:15)
[2022-03-31] MEDS: cloNIDine HCL 0.1 MG TABLET PO SCH ×2 (08:17→20:01)
[2022-03-31] MEDS: carvediloL 6.25 MG TABLET PO SCH ×2 (08:17→16:40)
[2022-03-31] MEDS ORDERED: Bisacodyl 10 MG RECTAL SUPPOSITORY RC ONE (09:29)
[2022-03-31 09:56] LABS: Adenovirus Not Detected (Not Detect); Coronavirus 229E Not Detected (Not Detect); Coronavirus HKU1 Not Detected (Not Detect); Coronavirus NL63 Not Detected (Not Detect); Coronavirus OC43 Not Detected (Not Detect)
[2022-03-31 10:03] LABS: Human Metapneumovirus Not Detected (Not Detect); Human Rhinovirus/Enterovirus Not Detected (Not Detect); SARS-CoV-2 DETECTED (Not Detect)
[2022-03-31 10:04] LABS: Bordetella Pertussis Not Detected (Not Detect); Chlamydophila pneumoniae Not Detected (Not Detect); Influenza A Subtype 2009 H1 Not Detected (Not Detect); Influenza B Not Detected (Not Detect); Mycoplasma pneumoniae Not Detected (Not Detect); Parainfluenza Virus 1 Not Detected (Not Detect); Parainfluenza Virus 2 Not Detected (Not Detect); Parainfluenza Virus 3 Not Detected (Not Detect); Parainfluenza Virus 4 Not Detected (Not Detect); Respiratory Syncytial Virus Not Detected (Not Detect)
[2022-03-31 11:14] LABS: Basophils # 0.1 K/mcL (0.0-0.2); Eosinophils # 0.7 K/mcL (0.0-0.6); Eosinophils % 8.7 %; Hemoglobin 9.3 g/dL (11.5-15.4); Immature Granulocytes % 0.9 % (0-4); Lymphocytes # 1.3 K/mcL (0.6-4.6); Lymphocytes % 16.7 %; Mean Corpuscular Hemoglobin 28.6 pg (28.0-33.3); Mean Corpuscular Volume 92.3 fL (83.0-100.0); Mean Platelet Volume 9.3 fL (9.4-12.4); Monocytes # 0.6 K/mcL (0.0-1.3); Monocytes % 6.9 %; Neutrophils # 5.3 K/mcL (1.6-8.9); Platelet Count 416 K/mcL (140-400); Red Blood Count 3.25 M/mcL (3.82-4.97); Segmented Neutrophils % 65.8 %
[2022-03-31 11:35] LABS: Calcium 8.6 mg/dL (8.6-10.3); Potassium 4.7 mEq/L (3.5-5.1)
[2022-03-31] MEDS: Gabapentin 400 MG CAPSULE PO SCH (20:01)
[2022-03-31] MEDS: *HR* OxyCODONE/APAP 5/325 TABLET PO PRN (21:29)
[2022-04-01] MEDS: Ondansetron 4 MG/2 ML VIAL IVP PRN (00:42)
[2022-04-01] MEDS: hydrALAZINE 25 MG TABLET PO SCH (00:42)
[2022-04-01] MEDS ORDERED: Milk and Molasses Enema 200 ML RC ONE (01:32)
[2022-04-01] MEDS ORDERED: Lactulose Oral Soln 20 GM/30 ML UDC PO ONE (01:32)
[2022-04-01 07:43] VITALS: BP 184/82; PULSE 87; TEMP 97.7; O2SAT 94
[2022-04-01] MEDS: Sennosides 8.6 MG TABLET PO SCH (07:46)
[2022-04-01] MEDS: cloNIDine HCL 0.1 MG TABLET PO SCH (07:46)
[2022-04-01] MEDS: Aspirin Enteric Coated 325 MG Tablet PO SCH (07:47)
[2022-04-01] MEDS: carvediloL 6.25 MG TABLET PO SCH (07:47)
[2022-04-01] MEDS: Insulin LISPRO 300 UNITS/3 ML VIAL SUBQ SCH (07:47)
== END 2022-04-01 09:51 | DRG 313 ==
LOC: 2ANU 19:03 → EMEROOARM 19:03 → SUATTDRO 21:43 → 2ANU 22:49 → SUATTDRO 03-12 18:46 → 2NENU 03-31 11:35
PROVIDERS: ADMIT Internal Medicine; ATTEND General Practice
PROC: IRPERMA (2022-03-15 12:00)